=== PATIENT | male | born 1935 | race Caucasian/White ===

== ENCOUNTER 2021-06-16 17:08 | Emergency (ER) | payer OTHER, MEDICAID ==
[~2021-06-16] VITALS: Ht 157.5 cm; Wt 93.4 kg
[2021-06-16 17:10] VITALS: BP_SYST 163
[2021-06-16 17:55] LABS: BASOPHILS # (AUTO) 0.1 K/uL (0.0-0.2); BASOPHILS % (AUTO) 1.9 % (0.0-2.0); EOSINOPHILS # (AUTO) 0.2 K/uL (0.0-0.4); EOSINOPHILS % (AUTO) 2.9 % (0.0-4.0); HEMATOCRIT 44.6 % (36-54); HEMOGLOBIN 15.2 g/dL (14.0-18.0); LYMPHOCYTES # (AUTO) 1.5 K/uL (1.0-5.5); LYMPHOCYTES % (AUTO) 19.3 % (20.5-51.5); MEAN CORPUSCULAR HEMOGLOBIN 31 pg (27-31); MEAN CORPUSCULAR HGB CONC 34 % (32-36); MEAN CORPUSCULAR VOLUME 90 fL (79.0-98.0); MONOCYTES # (AUTO) 0.5 K/uL (0.0-1.0); MONOCYTES % (AUTO) 6.2 % (1.7-9.3); NEUTROPHILS # (AUTO) 5.3 K/uL (1.8-7.7); NEUTROPHILS % (AUTO) 69.7 % (40.0-70.0); PLATELET COUNT (AUTO) 202 K/uL (130-430); RED BLOOD CELL COUNT(AUTO) 4.94 MIL/uL (4.2-6.2); RED CELL DISTRIBUTION WIDTH 14.1 % (9.0-15.0); WHITE BLOOD COUNT (AUTO) 7.6 K/uL (4.8-10.8)
[2021-06-16] MEDS ORDERED: NS 50 ML IV ONE ×4 (18:00)
[2021-06-16] MEDS ORDERED: ALTEPLASE 100 MG VIAL IVP ONE ×4 (18:00)
[2021-06-16] MEDS ORDERED: ALTEPLASE 100 MG VIAL IV ONE ×5 (18:00→18:30)
[2021-06-16 18:02] LABS: ANION GAP 8 (5-15); CALCIUM 9.9 mg/dL (8.4-11.0); CHLORIDE 101 mmol/L (98-107); CREATININE 0.95 mg/dL (0.55-1.30); GLUCOSE 131 mg/dL (70-99); SODIUM SERUM 138 mmol/L (136-145); UREA NITROGEN, BLOOD 17 mg/dL (8-21)
[2021-06-16 18:06] LABS: PROTHROMBIN TIME 10.4 SECS (9.5-12.5)
[2021-06-16 18:07] LABS: BILIRUBIN,URINE NEGATIVE (NEGATIVE); BLOOD, URINE NEGATIVE (NEGATIVE); CLARITY/URINE CLEAR (CLEAR); COLOR,URINE YELLOW (YELLOW); GLUCOSE,URINE NEGATIVE (NEGATIVE); KETONES,URINE NEGATIVE (NEGATIVE); LEUKOCYTE ESTERASE ,URINE NEGATIVE (NEGATIVE); NITRITE, URINE NEGATIVE (NEGATIVE); PH,URINE 5.5 (5.0-8.0); PROTEIN URINE NEGATIVE (NEGATIVE); UROBILINOGEN,URINE 0.2 (0.2-1.0)
[2021-06-16 18:08] LABS: ALANINE AMINOTRANSFERASE 54 U/L (12-78); ALBUMIN 4.1 g/dL (3.4-4.8); ASPARTATE AMINOTRANSFERASE 38 U/L (10-37); TOTAL BILIRUBIN 0.3 mg/dL (0.0-1.0)
[2021-06-16] MEDS ORDERED: ALTEPLASE IV ONE (19:15)
[2021-06-16] MEDS ORDERED: WATER FOR INJECTION STERILE IV ONE (19:15)
[2021-06-16] MEDS ORDERED: ALTEPLASE 8.4 MG in WATER FOR INJECTION,STERILE 8.4 ML IVP ONE (19:15)
[2021-06-16] MEDS ORDERED: IOHEXOL 350 mgI/mL, 150 ML INFUS..BTL IV ONE (19:28)
[2021-06-16 19:55] VITALS: BP_SYST 146
== END 2021-06-16 19:55 | disposition short-term general hospital (02) ==
LOC: SED 17:08
DX: I63.9 Cerebral infarction, unspecified (principal); I10 Essential (primary) hypertension
CPT/HCPCS: 36415; 37195; 70450; 70496; 70498; 71045; 76376; 80048; 80053; 81003; 84484; 85025; 85610; 85730; 86886; 86900; 86901; 99291; J2997; Q9967

== ENCOUNTER 2021-12-22 12:38 | Emergency (ER) | payer OTHER, MEDICAID ==
[~2021-12-22] VITALS: Ht 175.3 cm; Wt 95.3 kg
--- NOTE | 2021-12-22 12:42 | NUR ---
pt triaged in room 6
[2021-12-22 12:48] VITALS: BP_SYST 146
--- NOTE | 2021-12-22 13:00 | NUR ---
Patient to ER bed to gown for evaluation. Side rails up. Report given to Judy BANSAL [id number]
--- NOTE | 2021-12-22 13:02 | NUR ---
pt takes amlodepine daily
--- NOTE | 2021-12-22 13:10 | NUR ---
ER at bedside examining patient.
--- NOTE | 2021-12-22 13:33 | NUR ---
Pt in bed #4 coming from home ambulatory with steady gait. Pt is A&Ox4. Skin intact. Pt c/o falling at home about two hours ago falling. Pt did hit face but no LOC. There is a large hematoma present on left eye and eyebrow. There is swelling noted on upper bridge of nose. Pt rates pain in face 10/10. No chest pain and no sob. Denies n/v. No blurred vision. NKA. Pt has hx of two strokes in the past and also has HTN. Connected pt to flight technician and VSS. Bed in lowest position.
--- NOTE | 2021-12-22 13:50 | NUR ---
Patient transported to radiology via gurney, accompanied by RAD.
--- NOTE | 2021-12-22 14:05 | NUR ---
Returned from radiology, back to [facility].
[2021-12-22 16:33] VITALS: BP_SYST 154
--- NOTE | 2021-12-22 16:33 | NUR ---
Patient given written and verbal discharge instructions and verbalizes understanding. ER MD discussed with patient the results and treatment provided. Patient in stable condition. ID arm band removed. Patient educated on pain management and to follow up with PMD. Pain Scale . Opportunity for questions provided and answered. Medication side effect fact sheet provided.
== END 2021-12-22 16:33 | disposition home or self-care (01) ==
LOC: SED 12:38
DX: S09.90XA Unspecified injury of head, initial encounter (principal); I10 Essential (primary) hypertension; W01.0XXA Fall on same level from slipping, tripping and stumbling without subsequent striking against object, initial encounter; Y93.89 Activity, other specified; Y92.89 Other specified places as the place of occurrence of the external cause; Y99.8 Other external cause status
CPT/HCPCS: 70450-TC; 76376; 99284

== ENCOUNTER 2022-09-09 10:05 | Inpatient (IN) | payer OTHER, MEDICAID ==
[~2022-09-09] VITALS: Ht 175.3 cm; Wt 94.3 kg
[2022-09-09 10:24] VITALS: BP_SYST 146
--- NOTE | 2022-09-09 10:39 | NUR ---
patient ambulatory to er from home c/o dizziness started this morning denies chest pain, will continue to monitor, awaiting for edp for initial assessment.
--- NOTE | 2022-09-09 10:50 | NUR ---
EDP AT BEDSIDE FOR INITIAL ASSESSMENT.
[2022-09-09] MEDS ORDERED: CLOP75TA32 (11:05)
[2022-09-09] MEDS ORDERED: MONT10TA22 (11:05)
[2022-09-09] MEDS ORDERED: AMLO1POW (11:05)
[2022-09-09] MEDS ORDERED: ATOR20TA64 (11:05)
[2022-09-09] MEDS ORDERED: MECLIZINE HCL 25 MG TABLET (ANITVERT) PO ONE (11:15)
[2022-09-09 12:00] LABS: BASOPHILS % (AUTO) 0.8 % (0.0-2.0); EOSINOPHILS # (AUTO) 0.2 K/uL (0.0-0.4); EOSINOPHILS % (AUTO) 3.2 % (0.0-4.0); HEMATOCRIT 43.2 % (36-54); HEMOGLOBIN 14.4 g/dL (14.0-18.0); LYMPHOCYTES # (AUTO) 1.1 K/uL (1.0-5.5); LYMPHOCYTES % (AUTO) 20.3 % (20.5-51.5); MEAN CORPUSCULAR HEMOGLOBIN 31 pg (27-31); MEAN CORPUSCULAR HGB CONC 33 % (32-36); MEAN CORPUSCULAR VOLUME 92 fL (79.0-98.0); MONOCYTES # (AUTO) 0.3 K/uL (0.0-1.0); MONOCYTES % (AUTO) 5.8 % (1.7-9.3); NEUTROPHILS # (AUTO) 3.9 K/uL (1.8-7.7); NEUTROPHILS % (AUTO) 69.9 % (40.0-70.0); PLATELET COUNT (AUTO) 169 K/uL (130-430); RED BLOOD CELL COUNT(AUTO) 4.72 MIL/uL (4.2-6.2); RED CELL DISTRIBUTION WIDTH 13.8 % (9.0-15.0); WHITE BLOOD COUNT (AUTO) 5.6 K/uL (4.8-10.8)
[2022-09-09 12:11] LABS: BILIRUBIN,URINE NEGATIVE (NEGATIVE); BLOOD, URINE NEGATIVE (NEGATIVE); CLARITY/URINE CLEAR (CLEAR); COLOR,URINE YELLOW (YELLOW); GLUCOSE,URINE NEGATIVE (NEGATIVE); KETONES,URINE NEGATIVE (NEGATIVE); LEUKOCYTE ESTERASE ,URINE NEGATIVE (NEGATIVE); NITRITE, URINE NEGATIVE (NEGATIVE); PROTEIN URINE NEGATIVE (NEGATIVE); UROBILINOGEN,URINE 0.2 (0.2-1.0)
[2022-09-09 12:27] LABS: ANION GAP 7 (5-15); CHLORIDE 103 mmol/L (98-107); CREATININE 0.86 mg/dL (0.55-1.30); GLUCOSE 152 mg/dL (70-99); UREA NITROGEN, BLOOD 16 mg/dL (8-21)
[2022-09-09 12:28] LABS: INR 1.1 (0.80-1.20); PROTHROMBIN TIME 11.2 SECS (9.5-12.5)
[2022-09-09 12:32] LABS: ALANINE AMINOTRANSFERASE 32 U/L (12-78); ALBUMIN 3.8 g/dL (3.4-4.8); ASPARTATE AMINOTRANSFERASE 26 U/L (10-37); TOTAL BILIRUBIN 0.6 mg/dL (0.0-1.0)
[2022-09-09] MEDS ORDERED: ONDANSETRON HCL 4 MG/2 ML VIAL IVP PRN (15:00)
--- NOTE | 2022-09-09 15:29 | NUR ---
Admit bed requested Patient will be admitted to care of . Admitted to TELE unit. Diagnosis VERTIGO Inpatient (Yes or No) YES Observation (Yes or No) NO Orientation concerns or request close to nursing station (Yes or No) NO Covid Status PENDING On vent or bipap NO Isolation requirements NO Needs a sitter NO From Home (Yes or if No enter name of facility) HOME Requires Dialysis (Yes or No) NO Med Rec Completed (Yes of No) YES
--- NOTE | 2022-09-09 18:15 | NUR ---
PATIENT ASSISTED WITH URINAL.
--- NOTE | 2022-09-09 20:50 | NUR ---
PROVIDED PATIENT JUICE AND BREAD.
[2022-09-09] MEDS ORDERED: ATORVASTATIN 20 MG TABLET PO SCH (21:00)
[2022-09-09] MEDS: MECLIZINE HCL 25 MG TABLET (ANITVERT) PO SCH (21:00)
--- NOTE | 2022-09-09 21:29 | NUR ---
PATIENT ASSISTED WITH URINAL
--- NOTE | 2022-09-09 23:46 | NUR ---
Patient resting quietly. No acute distress noted. Vital signs within normal range.
--- NOTE | 2022-09-10 00:55 | NUR ---
Patient resting quietly. No acute distress noted. Vital signs within normal range.
--- NOTE | 2022-09-10 02:43 | NUR ---
Patient resting quietly with eyes closed. No acute distress noted. Vital signs within normal range.
--- NOTE | 2022-09-10 04:55 | NUR ---
Patient resting quietly with eyes closed. No acute distress noted. Vital signs within normal range.
[2022-09-10 07:01] LABS: BASOPHILS # (AUTO) 0.1 K/uL (0.0-0.2); BASOPHILS % (AUTO) 1.1 % (0.0-2.0); EOSINOPHILS # (AUTO) 0.3 K/uL (0.0-0.4); EOSINOPHILS % (AUTO) 6.4 % (0.0-4.0); HEMATOCRIT 43.8 % (36-54); HEMOGLOBIN 14.9 g/dL (14.0-18.0); LYMPHOCYTES # (AUTO) 1.2 K/uL (1.0-5.5); LYMPHOCYTES % (AUTO) 23.7 % (20.5-51.5); MEAN CORPUSCULAR HEMOGLOBIN 31 pg (27-31); MEAN CORPUSCULAR HGB CONC 34 % (32-36); MEAN CORPUSCULAR VOLUME 91 fL (79.0-98.0); MONOCYTES # (AUTO) 0.4 K/uL (0.0-1.0); MONOCYTES % (AUTO) 8.6 % (1.7-9.3); NEUTROPHILS # (AUTO) 3.1 K/uL (1.8-7.7); NEUTROPHILS % (AUTO) 60.2 % (40.0-70.0); PLATELET COUNT (AUTO) 171 K/uL (130-430); RED BLOOD CELL COUNT(AUTO) 4.81 MIL/uL (4.2-6.2); RED CELL DISTRIBUTION WIDTH 13.6 % (9.0-15.0); WHITE BLOOD COUNT (AUTO) 5.2 K/uL (4.8-10.8)
--- NOTE | 2022-09-10 07:18 | NUR ---
Patient endorsed to cristóbal BANSAL. Report given to NIMISHA Awan
--- NOTE | 2022-09-10 07:25 | NUR ---
RECEIVED PT IN BED #3 FROM NIGHTSHIFT RN. PT IS STABLE, NAD, VSS, SLEEPING AT THIS TIME, AAOX3, AWAITING DISPOSITION TO TELE FLOOR.
[2022-09-10 08:04] LABS: ALANINE AMINOTRANSFERASE 26 U/L (12-78); ALBUMIN 3.6 g/dL (3.4-4.8); ANION GAP 8 (5-15); ASPARTATE AMINOTRANSFERASE 25 U/L (10-37); CALCIUM 9.2 mg/dL (8.4-11.0); CHLORIDE 108 mmol/L (98-107); CREATININE 0.83 mg/dL (0.55-1.30); GLUCOSE 103 mg/dL (70-99); TOTAL BILIRUBIN 0.6 mg/dL (0.0-1.0); UREA NITROGEN, BLOOD 13 mg/dL (8-21)
[2022-09-10] MEDS ORDERED: MONTELUKAST 10 MG TABLET PO SCH (09:00)
[2022-09-10] MEDS ORDERED: CLOPIDOGREL BISULFATE 75 MG TABLET PO SCH (09:00)
--- NOTE | 2022-09-10 09:36 | NUR ---
CONSULTATION PAGED/CALLED Reason for Consultation: [] VERTIGO Person Who was Notified: [] TEXTED CONSULT TO DR Manjula JONES Consulting Physician: [] DR Manjula JONES Health Information Systems Technician Specialty: [] NEURO Ordering Physician: [] DR NICK
--- NOTE | 2022-09-10 09:59 | NUR ---
Patient will be admitted to [facility]. Admitted to TELE unit. Will go to room 120A. Belongings list completed. Complete and up to date summary report printed. SBAR report to be given at bedside with opportunity for questions.
--- NOTE | 2022-09-10 10:00 | NUR ---
admission notes received pt from home thru e.r. with diagnosis of vertigo, chief complain is dizziness and nausea, pt is under the care of dr stew estevez. pt given breakfast and am meds, educated on the use of call light , tv and bed controls. encouraged to call for assist and any concerns. bed in low position, call light in reach. will cont to monitor.
[2022-09-10] MEDS: MECLIZINE HCL 25 MG TABLET (ANITVERT) PO SCH ×2 (10:15→14:50)
[2022-09-10 10:35] VITALS: BP_SYST 147
[2022-09-10] MEDS ORDERED: MECL-160 PO (13:51)
[2022-09-10 15:43] VITALS: BP_SYST 140
[2022-09-10 16:29] VITALS: BP_SYST 140
--- NOTE | 2022-09-10 17:00 | NUR ---
PT HAS BEEN STABLE THE WHOLE SHIFT SINCE ARRIVAL TO TTHE UNIT, NO C/O OF PAIN, OR NAUSEA AND VERTIGO. WILL CONT TO MONITOR.
--- NOTE | 2022-09-10 17:28 | NUR ---
D/C Patient Patient given medication reconciliation form and D/C instructions. Exit Care provided. Patient verbalized understanding. MD discussed with patient the results and treatment provided. Ambulatory with steady gait for discharge to home. Patient in stable condition, ID band removed. IV catheter removed, intact and dressing applied, no active bleeding. ERx of MECLIZINE given. Patient educated on pain management. All belongings sent with patient.
== END 2022-09-10 18:00 | disposition home or self-care (01) | DRG 149 ==
LOC: SED 10:05 → STU 14:52
PROVIDERS: ADMIT Family Medicine; ATTEND Family Medicine
DX: H81.10 Benign paroxysmal vertigo, unspecified ear (principal); I10 Essential (primary) hypertension; Z20.822 Contact with and (suspected) exposure to COVID-19; E78.00 Pure hypercholesterolemia, unspecified; Z86.73 Personal history of transient ischemic attack (TIA), and cerebral infarction without residual deficits
CPT/HCPCS: 36415; 70450-TC; 70551; 71045; 76376; 80053; 81003; 84484; 85025; 85610-TC; 85730-TC; 93005; 93306; 99285; G0378; J8597